=== PATIENT | male | born 1975 | race Caucasian/White ===

== ENCOUNTER 2021-08-12 06:24 | Day surgery (SDC) | payer OTHER ==
[2021-08-12] MEDS ORDERED: Lactated Ringers 1,000 ML IV SCH (07:00)
[2021-08-12] MEDS ORDERED: Lactated Ringers 1,000 ML IV ONE (07:11)
[2021-08-12] MEDS ORDERED: DIPRIVAN 200 MG/20 ML IV ONE (08:02)
[2021-08-12] MEDS ORDERED: Versed 2 MG/2 ML Injection ONE (08:03)
[2021-08-12 08:45] VITALS: O2SAT 98
[2021-08-12 09:22] VITALS: BP 132/80; PULSE 72
--- NOTE | 2021-08-12 11:41 | OP ---
SURGERY DATE/TIME: 08/12/2021 0801 PREOPERATIVE DIAGNOSES: 1) Screening colonoscopy. 2) Family history of colon cancer. POSTOPERATIVE DIAGNOSIS: Normal colon. PROCEDURE: Colonoscopy. SURGEON: Regan Garcia M.D. ANESTHESIA: MAC by Zackary Gomes CRNA. ESTIMATED BLOOD LOSS: None. SPECIMENS: None. DESCRIPTION OF PROCEDURE: After informed written consent was obtained, the patient was taken to the endoscopy suite. Digital rectal exam showed normal sphincter tone and no internal lesions were encountered after anesthesia was titrated to the desired level of consciousness. Next, the scope was inserted into the colon and the entire colonic mucosa was inspected. The level of cecum was reached and verified with direct visualization of the ileocecal valve. Upon withdrawal careful mucosal inspection revealed no gross abnormalities. There were some scattered diverticula but no other lesions were encountered. Prior to withdrawal retroflexion showed no internal lesions. The scope was removed. The patient was transferred to the recovery room in excellent condition.
== END 2021-08-12 09:15 | disposition home or self-care (01) ==
LOC: SDC 06:24
PROVIDERS: ATTEND Family Medicine
DX: Z12.11 Encounter for screening for malignant neoplasm of colon (principal); Z80.0 Family history of malignant neoplasm of digestive organs; E11.9 Type 2 diabetes mellitus without complications
CPT/HCPCS: 82947; G0121; J2250; J2704

== ENCOUNTER 2023-04-21 05:46 | Day surgery (SDC) | payer OTHER ==
[2023-04-21 06:26] VITALS: RESP 16
[2023-04-21] MEDS ORDERED: Lactated Ringers 1,000 ML IV SCH (06:30)
[2023-04-21] MEDS ORDERED: Versed 2 MG/2 ML Injection ONE (07:55)
[2023-04-21] MEDS ORDERED: DIPRIVAN 200 MG/20 ML IV ONE (07:55)
--- NOTE | 2023-04-21 08:42 | OP ---
SURGERY DATE/TIME: 04/20/2023 PREOPERATIVE DIAGNOSIS: Epigastric abdominal pain. POSTOPERATIVE DIAGNOSIS: Normal exam. PROCEDURE: EGD. SURGEON: Regan Garcia M.D. ANESTHESIA: MAC by Zakcary Gomes CRNA. ESTIMATED BLOOD LOSS: None. SPECIMENS: None. DESCRIPTION OF PROCEDURE: After informed written consent was obtained, the patient was taken to the endoscopy suite. He is placed in left lateral decubitus position and a bite block was inserted. Anesthesia was titrated to the desired level of consciousness and the endoscope is inserted into the posterior oropharynx. Under direct visualization the esophagus is easily traversed. There is normal esophageal mucosa free of any lesions or defects. The mucosal structures appeared normal. Upon entering the stomach there was a normal gastroesophageal junction with normal gastric mucosa with no obvious lesions or abnormalities. The pylorus was traversed and the first and second portions of the duodenum had a normal mucosal appearance. Upon withdrawal again all mucosal structures appeared to be within normal limits. The gastroesophageal junction and esophageal mucosa again was inspected upon withdrawal and noted to be normal. The scope was removed and the patient was transferred to the recovery room in good condition.
[2023-04-21 09:13] VITALS: BP 102/62; PULSE 69; TEMP 97.7; O2SAT 97
== END 2023-04-21 09:22 | disposition home or self-care (01) ==
LOC: SDC 05:46
PROVIDERS: ATTEND Family Medicine
DX: R10.13 Epigastric pain (principal); R10.9 Unspecified abdominal pain; E11.9 Type 2 diabetes mellitus without complications
CPT/HCPCS: 82947; J2250; J2704